=== PATIENT | male | born 1995 | race Caucasian/White ===

== ENCOUNTER 2024-06-19 17:01 | Inpatient (IN) ==
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
[2024-06-19 17:52] LABS: Basophils # (auto) 0.04 K/uL (0.00-0.20); Basophils % (auto) 0.5 %; Eosinophils # (auto) 0.06 K/uL (0.00-0.50); Eosinophils % (auto) 0.7 %; Hematocrit (blood only) 40.8 % (42.0-52.0); Hemoglobin 14.2 g/dl (14.0-18.0); Immature Granulocytes # (auto) 0.03 K/uL (0.01-0.20); Immature Granulocytes % (auto) 0.3 %; Lymphocytes # (auto) 1.44 K/uL (1.20-3.40); Lymphocytes % (auto) 16.7 %; Mean Corpuscular Hemoglobin 29.1 pg (25.0-34.0); Mean Corpuscular Hgb Conc 34.8 g/dL (32.0-36.0); Mean Corpuscular Volume 83.6 fL (80.0-100.0); Mean Platelet Volume 11.7 fL (9.4-12.4); Monocytes % (auto) 5.8 %; Neutrophils # (auto) 6.56 K/uL (1.40-6.50); Platelet Count 221 K/uL (130-400); RDW Coefficient of Variation 12.8 % (11.5-14.5); RDW Standard Deviation 38.8 fL (36.4-46.3); Red Blood Count 4.88 M/uL (4.70-6.10); White Blood Count 8.63 K/ul (4.8-10.8)
[2024-06-19] MEDS: LORazepam 1 MG TAB SL STA (18:05)
[2024-06-19 18:17] LABS: Anion Gap 10 (3-11); Bilirubin,Total 2.9 mg/dl (0.2-1.0); Calcium 10.1 mg/dl (8.6-10.3); Carbon Dioxide 26 mmol/L (21-32); Chloride 106 mmol/L (98-107); Potassium 3.6 mmol/L (3.5-5.1); Sodium 142 mmol/L (136-145)
[2024-06-19 18:22] LABS: Acetaminophen < 3 ug/ml (10-30); Salicylate < 3.0 mg/dl (3.0-30)
[2024-06-19 18:23] LABS: Alanine Aminotransferase 13 U/L (7-52); Albumin Globulin Ratio 1.7 (0.9-2); Alkaline Phosphatase 43 U/L (34-104); Aspartate Aminotransferase 13 U/L (13-39); BUN Creatinine Ratio 12.6 (10-20); Blood Urea Nitrogen 11 mg/dl (6-23); Glucose 102 mg/dl (70-99(Fasting))
[2024-06-19 18:37] LABS: Thyroid Stimulating Hormone 2.842 uIu/ml (0.300-4.500)
[2024-06-19] MEDS: ONDANSETRON 4 MG OD TAB PO STA (18:38)
[2024-06-19 20:08] LABS: Lipase 13 U/L (11-82)
[2024-06-19 20:25] LABS: Appearance Urine Clear (Clear); Bilirubin Urine Negative (Negative); Blood Urine Negative (Negative); Color Urine Yellow; Glucose Urine UA Negative (Negative); Ketones Urine Negative (Negative); Leukocyte Esterase Urine Negative (Negative); Nitrite Urine Negative (Negative); Protein Urine Negative (Negative); Specific Gravity Urine 1.005 (1.000-1.030); Urobilinogen Urine Negative (Negative)
[2024-06-19 20:49] LABS: Amphetamines+Metham, Urine Neg (Neg); Barbiturates, Urine Neg (Neg); Benzodiazepine, Urine Neg (Neg); Cocaine, Urine Neg (Neg); Fentanyl, Urine Neg (Neg); MDMA (Ecstacy), Urine Neg (Neg); Marijuana, Urine Neg (Neg); Methadone, Urine Neg (Neg); Opiate, Urine Neg (Neg); Phencyclidine, Urine Neg (Neg)
--- NOTE | 2024-06-19 22:35 | Ultrasound Report ---
Exam(s): US GALLBLADDER EXAM: US Abdomen Limited, Gallbladder CLINICAL HISTORY: Reason for exam: danny bili. TECHNIQUE: Real-time ultrasound of the right upper quadrant with image documentation. COMPARISON: No relevant prior studies available. FINDINGS: Liver: The liver measures 16.3 cm with normal echotexture. The portal vein is patent with normal hepatopetal flow. Gallbladder: Unremarkable. No gallstones. No wall thickening or surrounding fluid. Common bile duct: The common bile duct is nondilated measuring 3 mm. Pancreas: The visualized portion of the pancreas is unremarkable. Right kidney: The right kidney measures 11.2 cm with normal appearance. No hydronephrosis. Incidental note is made of a 8 mm simple cyst. No follow-up is required. Inferior vena cava: The IVC is unremarkable. IMPRESSION: No acute findings in the right upper quadrant. Electronically signed by: Jb Zacarias MD 06/19/24 22:34 PM
--- NOTE | 2024-06-20 01:44 | Emergency Department Note ---
ED Visit Note Date and Time: 06/20/2024 115 Interval History: Sign out received from Dr. Medina who reviewed details of the encounter. Patient was pending bed placement. Summary: Patient rested throughout the night After receiving Ativan. Patient will be evaluated by staff from [facility] around 7 AM in the morning. The case will be signed out to Dr. Jeffrey at change of shift awaiting final disposition. .
--- NOTE | 2024-06-20 07:48 | Emergency Department Note ---
ED Visit Note I assumed care at the change of shift. The patient was awaiting assessment from our psychiatric services, [facility] She was a voluntary psychiatric admission. She presented depressed with suicidality. The patient was seen by the psychiatry [facility] staff. She has been accepted to their floor. The appropriate paperwork was completed and signed. The patient was admitted voluntarily. .
[2024-06-20] MEDS ORDERED: BISMUTH SUBSALICYLATE 262 MG CHEW PO PRN (10:28)
[2024-06-20] MEDS ORDERED: ACETAMINOPHEN 325 MG TAB PO PRN (10:28)
[2024-06-20] MEDS ORDERED: MAGNESIUM HYDROXIDE SUSP 30 ML UDC PO PRN (10:28)
[2024-06-20] MEDS ORDERED: ALUMINUM/MAGNESIUM SUSP 30 ML UDC PO PRN (10:28)
[2024-06-20] MEDS ORDERED: SODIUM CHLORIDE 0.65% NA SOLN 45 ML (OCEAN) PRN (10:28)
[2024-06-20] MEDS ORDERED: hydrOXYzine HCl 25 MG TAB PO PRN (10:28)
[2024-06-20] MEDS ORDERED: Patient's ALLERGY Info needs ENTERED SCH (10:45)
[2024-06-20] MEDS: hydrOXYzine HCl 25 MG TAB PO PRN (11:03)
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
[2024-06-20] MEDS: FLUoxetine HCL 20 MG CAP PO SCH (13:14)
[2024-06-20] MEDS: PROPRANOLOL HCL 10 MG TAB PO SCH (13:14)
[2024-06-20] MEDS: MIRTAZAPINE TAB 15 MG TAB PO SCH (21:18)
--- NOTE | 2024-06-21 09:02 | Psychiatric Progress Note ---
Date of Service June 21, 2024 Impression / Recommendations Impression ANGELIKA KHALIL is a 28-year-old man who currently lives in [facility], has a history of depression, anxiety, childhood trauma and was admitted on 06/20/24 08:36 on a 201 voluntary commitment for worsening depression, SI and inability for self-care including recent significant weight loss of ~20lbs over a few months. Diagnostically consistent with major depressive disorder, generalized anxiety disorder, and post-traumatic stress disorder (PTSD) related to childhood trauma. Psychosocial stressors include unstable housing, lack of medical insurance, financial strain and limited social support, which are contributing to and exacerbating psychiatric symptoms. A: Still with significant depression and anxiety. Tolerating medications so far. SW working on referrals and medical assistance application as he needs o utpatient therapy, primary care vs psychiatry and on case management referral. Overall, I spent a total of 28 minutes on this case including meeting with the patient, reviewing the chart, nursing report, multidisciplinary team meeting, orders, and documentation. (1) MDD (major depressive disorder), recurrent episode, severe: (2) Suicidal ideations: (3) DONNA (generalized anxiety disorder): (4) Post traumatic stress disorder (PTSD): (5) Trauma and stressor-related disorder: (6) Psychosocial stressors: Plan 06/21/2024: Continue current medications and tx plan. Continue to monitor for hypotension with propranolol (tolerating without side effects so far). 06/20/2024: The patient was admitted to the [facility] on q15 min checks (behavioral with suicide precautions) for safety. The patient will participate in group, recreational, and milieu therapies and will be offered additional individual and family sessions as clinically appropriate. -Start fluoxetine 20mg daily -Start propranolol 10mg BID -Start mirtazapine 7.5mg HS -SW to explore options for medical assistance, outpatient referrals for case management/therapy (ideally tf-CBT or CPT or EMDR) and primary care provider vs psychiatry Inventory Assets Strengths: supportive relationships (brother, friend, wants to be closer with his mom), willing to get treatment Needs: safety and stabilization, medication adjustment, additional coping skills, increased outpatient services Suicide Risk Level Suicide Risk Level: High-Moderate (q15 min suicide checks) (worsened depression and anxiety with SI and psychic distress exacerbating trauma symptoms, but feels safe in the hospital and feels able to ask for support if needed) Risk Factors Assessment Male: Yes : Yes Do You Have Access To A Gun?: No Health Problems: No Mental Health Diagnoses: Yes Substance Use Disorders: No Previous Attempt: No Family History of Suicide: No Previous Psychiatric Hospitalization: Yes Hopelessness: Yes Protective Factors Assessment Employed: Yes (local [employer]) Interval History Identifying Information ANGELIKA KHALIL is a 28-year-old man who currently lives in [facility], has a history of depression, anxiety, childhood trauma and was admitted on 06/20/24 08:36 on a 201 voluntary commitment for worsening depression, SI and inability for self-care including recent significant weight loss of ~20lbs over a few months. Chief Complaint "Working on ways to not just shut down". Review of Systems Sleep Information Total Hours of Sleep: 10 Meal Information Percent Meal Consumed - Lunch: 100 Percent Meal Consumed - Dinner: 25 Subjective Subjective Patient was seen & assessed and interval progress reviewed with treatment team. Found propranolol helpful yesterday. Attended evening groups. Appears very depressed. Today reports appreciation for interventions via medications and therapy/groups so far. He found meeting with SW and unit counselor helpful for lessening his anxiety a bit about his new job and thinking about ways to cope with anger/anxiety/depression without "shutting down". Tolerating medications so far without side effects. Physical Exam Psychiatric Orientation: alert and oriented x 3 Apperance: appropriately dressed and + disheveled Eye Contact: + fair eye contact Motor Behavior: no abnormal motor movements Speech: normal rate/rhythm/volume of speech Affect: + depressed affect and + anxious affect Mood: + depressed mood and + anxious mood Thought Process: goal directed thought process Thought Content: reality based without delusions, + hopelessness, + worthlessness and + loneliness Suicidal Thoughts: denies suicidal plan and denies suicidal intent; + reports suicidal thoughts (intermittent passive thoughts ) Homicidal Thoughts: denies homicidal thoughts Hallucinations: no auditory hallucinations and no visual hallucinations Cognition: recent memory grossly intact, remote memory grossly intact, attention grossly intact and language grossly intact Estimated Intelligence: consistent with education level Insight: + fair insight Judgment: + limited judgement Vital Signs (Past 24 Hours) Last Vital Signs Temp 36.6 C 06/21/24 06:43 Pulse 65 06/21/24 06:43 Resp 16 06/21/24 06:43 BP 97/65 L 06/21/24 06:43 Pulse Ox 99 06/21/24 06:43 O2 Del Method Room Air 06/21/24 06:43 Results & Data ([facility]) Current Inpatient Medications Current Inpatient Medications: Current Inpatient Medications Acetaminophen (Acetaminophen 325 Mg Tab) 650 mg PO Q4H PRN PRN Reason: Headache or Minor Fever Stop: 07/20/24 10:27 Al Hydrox/Mg Hydrox/Simethicone (Aluminum/Magnesium Susp 30 Ml Udc) 30 ml PO Q4H PRN PRN Reason: GI Upset Stop: 07/20/24 10:27 Bismuth Subsalicylate (Bismuth Subsalicylate 262 Mg Chew) 2 tab PO Q30M PRN PRN Reason: Loose Stool/Diarrhea Stop: 07/20/24 10:27 Fluoxetine HCl (Fluoxetine Hcl 20 Mg Cap) 20 mg PO QAM MALAIKA Stop: 07/20/24 12:59 Last Admin: 06/20/24 13:14 Dose: 20 mg Hydroxyzine HCl (Hydroxyzine Hcl 25 Mg Tab) 50 mg PO HSZ PRN PRN Reason: Insomnia Stop: 07/20/24 10:27 Hydroxyzine HCl (Hydroxyzine Hcl 25 Mg Tab) 25 mg PO Q4H PRN PRN Reason: Anxiety Stop: 07/20/24 10:27 Last Admin: 06/20/24 11:03 Dose: 25 mg Magnesium Hydroxide (Magnesium Hydroxide Susp 30 Ml Udc) 30 ml PO DAILY PRN PRN Reason: Constipation Stop: 07/20/24 10:27 Mirtazapine (Mirtazapine Tab 15 Mg Tab) 7.5 mg PO HS MALAIKA Stop: 07/20/24 21:59 Last Admin: 06/20/24 21:18 Dose: 7.5 mg Propranolol HCl (Propranolol Hcl 10 Mg Tab) 10 mg PO BID MALAIKA Stop: 07/20/24 12:59 Last Admin: 06/20/24 21:20 Dose: 10 mg Sodium Chloride (Sodium Chloride 0.65% Na Soln 45 Ml ([place])) 1 - 2 sprays NA PRN PRN PRN Reason: Nasal Dryness/Congestion Stop: 07/20/24 10:27
--- NOTE | 2024-06-22 09:17 | Psychiatric Progress Note ---
Date of Service June 22, 2024 Impression / Recommendations Impression ANGELIKA KHALIL is a 28-year-old man who currently lives in [facility], has a history of depression, anxiety, childhood trauma and was admitted on 06/20/24 08:36 on a 201 voluntary commitment for worsening depression, SI and inability for self-care including recent significant weight loss of ~20lbs over a few months. Diagnostically consistent with major depressive disorder, generalized anxiety disorder, and post-traumatic stress disorder (PTSD) related to childhood trauma. Psychosocial stressors include unstable housing, lack of medical insurance, financial strain and limited social support, which are contributing to and exacerbating psychiatric symptoms. A: Still with significant depression and anxiety. Tolerating medications so far. SW working on referrals and medical assistance application as he needs o utpatient therapy, primary care vs psychiatry and on case management referral. Overall, I spent a total of 28 minutes on this case including meeting with the patient, reviewing the chart, nursing report, multidisciplinary team meeting, orders, and documentation. (1) MDD (major depressive disorder), recurrent episode, severe: (2) Suicidal ideations: (3) DONNA (generalized anxiety disorder): (4) Post traumatic stress disorder (PTSD): (5) Trauma and stressor-related disorder: (6) Psychosocial stressors: Plan 06/21/2024: Continue current medications and tx plan. Continue to monitor for hypotension with propranolol (tolerating without side effects so far). 06/20/2024: The patient was admitted to the [facility] ([facility]) on q15 min checks (behavioral with suicide precautions) for safety. The patient will participate in group, recreational, and milieu therapies and will be offered additional individual and family sessions as clinically appropriate. -Start fluoxetine 20mg daily -Start propranolol 10mg BID -Start mirtazapine 7.5mg HS -SW to explore options for medical assistance, outpatient referrals for case management/therapy (ideally tf-CBT or CPT or EMDR) and primary care provider vs psychiatry Inventory Assets Strengths: supportive relationships (brother, friend, wants to be closer with his mom), willing to get treatment Needs: safety and stabilization, medication adjustment, additional coping skills, increased outpatient services Suicide Risk Level Suicide Risk Level: High-Moderate (q15 min suicide checks) (worsened depression and anxiety with SI and psychic distress exacerbating trauma symptoms, but feels safe in the hospital and feels able to ask for support if needed) Suicide Risk Level Comments: High-Moderate due to severe depression with SI with plan prior to admission but feels safe in the hospital, able to safety contract and agrees to let nursing/st aff know should they develop plan, intent or feel unable to remain safe. 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 Chief Complaint "[]". Review of Systems Sleep Information Total Hours of Sleep: 7 Meal Information Percent Meal Consumed - Breakfast: 100 Percent Meal Consumed - Lunch: 100 Percent Meal Consumed - Dinner: 100 Subjective Subjective Patient was seen & assessed and interval progress reviewed with nursing and social work. Physical Exam Vital Signs (Past 24 Hours) Last Vital Signs Temp 36.7 C 06/22/24 06:39 Pulse 80 06/22/24 06:40 Resp 16 06/22/24 06:39 BP 109/63 06/22/24 06:40 Pulse Ox 99 06/21/24 06:43 O2 Del Method Room Air 06/21/24 06:43 Results & Data ([facility]) Current Inpatient Medications Current Inpatient Medications: Current Inpatient Medications Acetaminophen (Acetaminophen 325 Mg Tab) 650 mg PO Q4H PRN PRN Reason: Headache or Minor Fever Stop: 07/20/24 10:27 Al Hydrox/Mg Hydrox/Simethicone (Aluminum/Magnesium Susp 30 Ml Udc) 30 ml PO Q4H PRN PRN Reason: GI Upset Stop: 07/20/24 10:27 Bismuth Subsalicylate (Bismuth Subsalicylate 262 Mg Chew) 2 tab PO Q30M PRN PRN Reason: Loose Stool/Diarrhea Stop: 07/20/24 10:27 Fluoxetine HCl (Fluoxetine Hcl 20 Mg Cap) 20 mg PO QAM MALAIKA Stop: 07/20/24 12:59 Last Admin: 06/22/24 08:45 Dose: 20 mg Hydroxyzine HCl (Hydroxyzine Hcl 25 Mg Tab) 50 mg PO HSZ PRN PRN Reason: Insomnia Stop: 07/20/24 10:27 Hydroxyzine HCl (Hydroxyzine Hcl 25 Mg Tab) 25 mg PO Q4H PRN PRN Reason: Anxiety Stop: 07/20/24 10:27 Last Admin: 06/20/24 11:03 Dose: 25 mg Magnesium Hydroxide (Magnesium Hydroxide Susp 30 Ml Udc) 30 ml PO DAILY PRN PRN Reason: Constipation Stop: 07/20/24 10:27 Mirtazapine (Mirtazapine Tab 15 Mg Tab) 7.5 mg PO HS MALAIKA Stop: 07/20/24 21:59 Last Admin: 06/21/24 21:08 Dose: 7.5 mg Propranolol HCl (Propranolol Hcl 10 Mg Tab) 10 mg PO BID MALAIKA Stop: 07/20/24 12:59 Last Admin: 06/22/24 08:46 Dose: 10 mg Sodium Chloride (Sodium Chloride 0.65% Na Soln 45 Ml ([employer])) 1 - 2 sprays NA PRN PRN PRN Reason: Nasal Dryness/Congestion Stop: 07/20/24 10:27 Mental Health & Subst Abuse Tx Psychiatrist Name of Psychiatrist: [facility] Psychiatrist's Psychiatric Appointment Comment: After MA is approved contact for psych services. Therapist Name of Therapist: [facility] Therapist's Therapy Appointment Comment: After MA application is apporved contact for therapy services. Chief Program Officer Name of Chief Program Officer: David [facility] MH/ID Phone Number for Chief Program Officer: [phone] Date of Appointment with Chief Program Officer: 06/29/24 Time of Appointment with Chief Program Officer: 2pm Case Management Appointment Comment: Intake appointment for case management.
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
== END 2024-06-22 14:05 | disposition home or self-care (01) | DRG 885 ==
LOC: ED 17:01 → 3S 06-20 08:36